=== PATIENT | female | born 1945 | race Caucasian/White ===

== ENCOUNTER → 2017-11-08 12:47 | Outpatient (CLI) | payer OTHER, SELFPAY ==
--- NOTE | 2017-11-08 | DI.RAD.S_ITS ---
PROCEDURE: XR CHEST 2V INDICATIONS: SHORT OF BREATH TECHNIQUE: 2 views of the chest were acquired. COMPARISON: None. FINDINGS: Surgical changes and devices: None. Lungs and pleura: No pleural effusions or pneumothorax. Diffuse bilateral interstitial opacities are present. No focal lung consolidation Mediastinum: Mediastinal contours are normal. Heart size is mildly enlarged. Bones and chest wall: No suspicious bony abnormalities. Soft tissues appear unremarkable. IMPRESSION: Mildly enlarged cardiac silhouette and bilateral interstitial opacities suggesting mild pulmonary edema. Differential would also include atypical pneumonia. Correlate clinically. Dictated by: Gerardo Frey [facility] Interpreted: Tao Lacey MD on 11/08/2017 at 14:22 Approved by: Tao Lacey M.D. on 11/08/2017 at 19:10
== END ==
PROVIDERS: PCP Internal Medicine; Visit Provider Internal Medicine
DX: R06.02 Shortness of breath (principal)
CPT/HCPCS: 71046

== ENCOUNTER → 2018-02-23 14:33 | Outpatient (CLI) | payer OTHER, SELFPAY ==
--- NOTE | 2018-02-23 | DI.ECHO.S_ITS ---
[facility]---------+ [facility] +---------+ : : [address] : : : : [id number] : : : : Phone: [phone]+ Echocardiogram Report + + :Name: JASON FLYNN Study Date: 02/23/2018 Height: 60 in : :[facility] Weight: 262 lb : : Gender: Female BSA: 2.1 m2 : :: 1945 Age: 72 yrs BP: 166/62 mmHg: :Reason For Study: Dyspnea : :Ordering Physician: Tricia : :[place]loan Performed By: Rosalinda Nath : + + Interpretation Summary The left ventricle is normal in size. The ejection fraction is estimated to be 65-70%. There are no focal wall motion abnormalities. Diastolic parameters suggest a relaxation abnormality of the left ventricle, consistent with probable normal filling pressures. The right ventricle is borderline dilated. The right ventricular systolic function is normal. The right ventricular systolic pressure is estimated to be at least 33 mmHg based on an estimated right atrial pressure of 3 mm Hg. The left atrium is mildly dilated. Borderline right atrial enlargement. There is no significant valvular heart disease. The aortic root is normal size. Procedure: A two-dimensional transthoracic echocardiogram with color flow and Doppler was performed. The study quality was technically adequate. There is no prior echocardiogram noted for this patient. The patient was in normal sinus rhythm during the exam. Left Ventricle: The left ventricle is normal in size. There is mild concentric left ventricular hypertrophy. The ejection fraction is estimated to be 65-70%. There are no focal wall motion abnormalities. Diastolic parameters suggest a relaxation abnormality of the left ventricle, consistent with probable normal filling pressures. Right Ventricle: The right ventricle is borderline dilated. The right ventricular systolic function is normal. Atria: The left atrium is mildly dilated. Borderline right atrial enlargement. There is no Doppler evidence for an interatrial shunt. Mitral Valve: There is mild mitral annular calcification. There is no mitral regurgitation noted. Aortic Valve: The aortic valve is not well visualized. The aortic valve is grossly normal. No aortic regurgitation is present. Tricuspid Valve: The tricuspid valve is not well visualized, but is grossly normal. There is a trace or physiologic amount of tricuspid regurgitation. The right ventricular systolic pressure is estimated to be at least 33 mmHg based on an estimated right atrial pressure of 3 mm Hg. Pulmonic Valve: The pulmonic valve is not well visualized. There is no significant valvular heart disease. Great Vessels: The aortic root is normal size. The ascending aorta is normal in size. The aortic arch is normal in size. The IVC is of normal diameter and collapses greater than 50% with a sniff. This suggests a low right atrial pressure of 3 mm Hg. Pericardium/ Pleura There is no pericardial effusion. There is an anterior echo-free space consistent with a fat pad. MMode/2D Measurements & Calculations LVIDd: 5.4 cm LVOT diam: 1.9 cm LVIDs: 3.3 cm Ao root diam: 2.8 cm FS: 39.9 % asc Aorta Diam: 3.0 cm IVSd: 1.1 cm Ao Arch Diam (Prox Trans): 2.4 cm LVPWd: 1.1 cm LV aguilera. diameter/BSA (cm/m^2): 2.6 LV sys. diameter/BSA (cm/m^2): 1.6 LA A2 area: 24.0 cm2 RA long axis: 5.2 cm LA A4 area: 20.8 cm2 RA area: 20.0 cm2 LA length (vol): 5.4 cm RA vol: 65.1 ml LA vol: 78.7 ml RA : 31.1 ml/m2 LA vol index: 37.6 ml/m2 IVC diam: 2.0 cm RVD1 (basal): 4.3 cm RVD2 (mid): 3.3 cm TAPSE: 3.2 cm Doppler Measurements & Calculations Ao V2 max: 247.2 cm/sec LVOT Max Nael: 147.4 cm/sec Ao V2 mean: 166.9 cm/sec LV V1 max P.7 mmHg Ao max P.4 mmHg LV V1 VTI: 32.7 cm Ao mean P.3 mmHg NARCISO(I,D): 1.9 cm2 Ao V2 VTI: 51.8 cm NARCISO(V,D): 1.8 cm2 sev ratio: 0.63 NARCISO indexed to BSA (cm^2/m^2): 0.89 MV E max nael: 117.2 cm/sec TR max nael: 275.6 cm/sec MV A max nael: 135.5 cm/sec TR max P.4 mmHg MV E/A: 0.86 PA V2 max: 120.8 cm/sec Med Peak E' Nael: 6.9 cm/sec PA V2 mean: 79.6 cm/sec E/E' med: 16.9 PA mean P.9 mmHg Lat Peak E' Nael: 8.3 cm/sec PA Accel Time: 0.06 sec E/E' lat: 14.1 E/e' average: 15.5 MV dec time: 0.27 sec MV P1/2t: 79.7 msec MVA(VTI): 2.9 cm2 MV V2 mean: 72.7 cm/sec MV P1/2t max nael: 117.1 cm/sec MV mean P.5 mmHg MVA(P1/2t): 2.8 cm2 MV V2 VTI: 33.0 cm SV(LVOT): 96.4 ml Reading Physician:PM
== END ==
PROVIDERS: Family Provider Internal Medicine; PCP Internal Medicine; Visit Provider Internal Medicine
DX: R06.00 Dyspnea, unspecified (principal)
CPT/HCPCS: 93306

== ENCOUNTER → 2018-03-15 11:33 | Outpatient (CLI) | payer OTHER, SELFPAY ==
--- NOTE | 2018-03-15 11:36 | DI.CT.S_ITS ---
PROCEDURE: CT CHEST ABD PEL W CON INDICATIONS: surveillance scan TECHNIQUE: After the administration of oral and intravenous contrast, 5 mm thick sections acquired from the lung apices to the symphysis. 5 mm coronal and sagittal reformats were performed, with additional 7 mm coronal MIP reformats through the lungs. For radiation dose reduction, the following was used: automated exposure control, adjustment of mA and/or kV according to patient size. COMPARISON: Outside Facility, RG, CT ABDOMEN WITH CONTRAST, 07/01/2016, 9:43. FINDINGS: Image quality: Excellent. CHEST: Lungs and pleura: No acute consolidation. Scattered subsegmental atelectasis and/or scarring. No pleural effusions or pneumothorax. Central and peripheral airways appear patent and normal in caliber. Mediastinum: Heart size is normal. No pericardial effusion. No mediastinal or hilar adenopathy by size criteria. Thoracic aorta and central pulmonary arteries are normal in size. Esophagus is normal in caliber. No hiatal hernia. Chest wall: No axillary or supraclavicular adenopathy by size criteria. Thyroid gland negative. ABDOMEN: Solid organs: Liver is normal in size and enhancement. Gallbladder surgically absent. Biliary system is non dilated. Pancreas enhances normally. Spleen is normal in size and enhancement. No adrenal nodules. Left renal cortical scarring and postsurgical changes. No discrete mass. Right kidney demonstrates a simple appearing cyst in the inferior pole below as unremarkable. No hydronephrosis. Ureters appear nondilated. Peritoneum and bowel: At the GE junction, there is possible esophageal wall thickening which could be further evaluated with endoscopy. Bowel loops demonstrate normal wall thickness and caliber. No free fluid or air. The appendix is within normal limits Rectum is grossly unremarkable Colonic diverticulosis is seen without evidence of acute complication. Nodes and vessels: No retroperitoneal or mesenteric adenopathy by size criteria. Aorta and inferior vena cava are normal in size. Miscellaneous: Large fat-containing paraumbilical hernia, with grossly unchanged appearance since 2017. PELVIS: Genitourinary: Bladder wall thickness is normal. Miscellaneous: No inguinal hernias or adenopathy. Bones: No suspicious bony lesions. Multilevel lumbar disc degeneration and facet arthropathy. Lower thoracic degenerative disc disease. No vertebral body compression fractures. IMPRESSION: No evidence of active metastatic disease. Overall, stable examination since 07/01/16. Postsurgical sequela from prior left partial nephrectomy, unchanged. Large fat-containing periumbilical hernia as before. Distal esophageal wall thickening, which could be further evaluated with upper endoscopy to exclude neoplasm. Differential includes infectious or inflammatory esophagitis. Dictated by: Arnav Bejarano M.D. on 03/16/2018 at 12:15 Approved by: Arnav Bejarano M.D. on 03/16/2018 at 12:23
[2018-03-15 12:16] LABS: Add Manual Diff / Slide Review NO; Basophils Percent Auto 0.8 % (0-2); Eosinophils Percent Auto 0.8 % (2-4); Hematocrit 42.2 % (36-46); Hemoglobin 14.3 g/dL (12.0-16.0); Lymphocytes Percent Auto 24.3 % (25-40); Mean Corpuscular HGB Conc 33.9 % (30-36); Mean Corpuscular Hemoglobin 30.3 PG (26-34); Mean Corpuscular Volume 89.3 fL (80-100); Monocytes Percent Auto 5.3 % (3-14); Neutrophils Absolute Auto 6300 /uL (1500-7000); Neutrophils Percent Auto 68.8 % (50-75); Platelet Count 302 X10^3/uL (150-400); Red Blood Cell Count 4.72 X10^6/uL (4.0-5.2); White Blood Cell Count 9.2 X10^3/uL (4.5-11.0)
[2018-03-15 12:30] LABS: Alanine Aminotransferase 32 IU/L (9-52); Albumin 4.4 g/dL (3.5-5.0); Albumin Globulin Ratio 1.6 (1.0-2.8); Alkaline Phosphatase 110 U/L (38-126); Aspartate Aminotransferase 23 IU/L (14-36); BUN Creatinine Ratio 21.3 (6-22); Bilirubin Total 0.8 mg/dL (0.2-1.3); Blood Urea Nitrogen 17 mg/dL (7-17); Calcium 9.7 mg/dL (8.4-10.2); Carbon Dioxide 27 mmol/L (22-32); Chloride 102 mmol/L (98-107); Estimated Glomerular Filt Rate > 60.0 mL/min (>60); Globulin 2.8 g/dL (1.7-4.1); Glucose 161 mg/dL (80-110); HEMOLYSIS < 15 (0-50); Potassium 4.2 mmol/L (3.4-5.1); Sodium 139 mmol/L (137-145); Total Protein 7.2 g/dL (6.3-8.2)
[2018-03-15 12:31] LABS: Lactate Dehydrogenase 417 U/L (313-618)
== END ==
PROVIDERS: Family Provider Internal Medicine; PCP Internal Medicine; Visit Provider Internal Medicine Hematology & Oncology
DX: C64.2 Malignant neoplasm of left kidney, except renal pelvis (principal); K42.9 Umbilical hernia without obstruction or gangrene; Z90.5 Acquired absence of kidney
CPT/HCPCS: 36415; 71260; 74177; 80053; 83615; 85025; Q9967

== ENCOUNTER → 2018-05-23 08:44 | Outpatient (CLI) | payer MEDICARE, SELFPAY ==
[2018-05-23 10:22] LABS: Hemoglobin A1C% w Est Avg Glu 7.6 % (4.0-6.0)
[2018-05-23 10:49] LABS: Alanine Aminotransferase 30 IU/L (9-52); Aspartate Aminotransferase 21 IU/L (14-36); BUN Creatinine Ratio 21.3 (6-22); Blood Urea Nitrogen 17 mg/dL (7-17); Calcium 9.2 mg/dL (8.4-10.2); Carbon Dioxide 28 mmol/L (22-32); Chloride 99 mmol/L (98-107); Cholesterol 148 mg/dL (140-199); Estimated Glomerular Filt Rate > 60.0 mL/min (>60); Glucose 140 mg/dL (80-110); HDL Cholesterol 53 mg/dL (40-60); HEMOLYSIS < 15 (0-50); LDL Cholesterol Calculated 72 mg/dL (<100); Potassium 3.9 mmol/L (3.4-5.1); Sodium 138 mmol/L (137-145); Triglycerides 113 mg/dL (35-150)
== END ==
PROVIDERS: Family Provider Internal Medicine; PCP Internal Medicine; Visit Provider Internal Medicine
DX: I10 Essential (primary) hypertension (principal); E78.5 Hyperlipidemia, unspecified; E11.9 Type 2 diabetes mellitus without complications
CPT/HCPCS: 36415; 80048; 80061; 83036; 84450; 84460

== ENCOUNTER → 2018-09-11 09:19 | Outpatient (CLI) | payer MEDICARE, SELFPAY ==
[2018-09-11 10:06] LABS: Add Manual Diff / Slide Review NO; Basophils Absolute Auto 100 /uL (0-100); Basophils Percent Auto 0.6 % (0-2); Eosinophils Absolute Auto 200 /uL (0-450); Eosinophils Percent Auto 2.3 % (2-4); Hematocrit 42.3 % (36-46); Lymphocytes Absolute Auto 2800 /uL (1100-4500); Lymphocytes Percent Auto 33.3 % (25-40); Mean Corpuscular HGB Conc 33.1 % (30-36); Mean Corpuscular Hemoglobin 29.7 PG (26-34); Mean Corpuscular Volume 89.7 fL (80-100); Monocytes Absolute Auto 500 /uL (0-900); Monocytes Percent Auto 6.4 % (3-14); Neutrophils Absolute Auto 4800 /uL (1500-7000); Neutrophils Percent Auto 57.4 % (50-75); Platelet Count 276 X10^3/uL (150-400); Red Blood Cell Count 4.71 X10^6/uL (4.0-5.2); White Blood Cell Count 8.3 X10^3/uL (4.5-11.0)
[2018-09-11 10:20] LABS: Alanine Aminotransferase 20 IU/L (9-52); Albumin 4.2 g/dL (3.5-5.0); Albumin Globulin Ratio 1.6 (1.0-2.8); Alkaline Phosphatase 104 U/L (38-126); Aspartate Aminotransferase 20 IU/L (14-36); BUN Creatinine Ratio 18.8 (6-22); Bilirubin Total 0.8 mg/dL (0.2-1.3); Blood Urea Nitrogen 15 mg/dL (7-17); Calcium 9.5 mg/dL (8.4-10.2); Carbon Dioxide 26 mmol/L (22-32); Chloride 104 mmol/L (98-107); Estimated Glomerular Filt Rate > 60.0 mL/min (>60); Globulin 2.7 g/dL (1.7-4.1); Glucose 162 mg/dL (80-110); HEMOLYSIS < 15 (0-50); Lactate Dehydrogenase 358 U/L (313-618); Potassium 3.7 mmol/L (3.4-5.1); Sodium 140 mmol/L (137-145); Total Protein 6.9 g/dL (6.3-8.2)
[2018-09-11 10:32] LABS: Hemoglobin A1C% w Est Avg Glu 7.7 % (4.0-6.0)
== END ==
PROVIDERS: PCP Internal Medicine; Referring Provider Internal Medicine Hematology & Oncology; Visit Provider Internal Medicine
DX: E11.9 Type 2 diabetes mellitus without complications (principal); Z08 Encounter for follow-up examination after completed treatment for malignant neoplasm
CPT/HCPCS: 36415; 80053; 83036; 83615; 85025

== ENCOUNTER → 2018-11-16 12:27 | Outpatient (CLI) | payer MEDICARE, SELFPAY | PROVIDERS: PCP Internal Medicine; Visit Provider Surgery | DX: Z01.810 Encounter for preprocedural cardiovascular examination (principal); E66.01 Morbid (severe) obesity due to excess calories; I10 Essential (primary) hypertension; I49.9 Cardiac arrhythmia, unspecified | CPT/HCPCS: 93005 ==

== ENCOUNTER → 2019-01-19 10:06 | Outpatient (CLI) | payer MEDICARE, SELFPAY ==
--- NOTE | 2019-01-19 | DI.MG.S_ITS ---
BILATERAL DIGITAL SCREENING MAMMOGRAM 3D/2D WITH CAD: 01/19/2019 CLINICAL: Routine screening. Family history of breast cancer. Comparison is made to exams dated: 04/07/2011 mammogram, 06/25/2012 mammogram, and 12/07/2015 mammogram - [facility]. There are scattered fibroglandular elements in both breasts. Current study was also evaluated with a Computer Aided Detection (CAD) system. No significant masses, calcifications, or other findings are seen in either breast. There has been no significant interval change. IMPRESSION: NEGATIVE There is no mammographic evidence of malignancy. A 1 year screening mammogram is recommended. This exam was interpreted at Station ID: [id number]. NOTE: For mammograms, a report in lay terms will be sent to the patient. Approximately 15% of breast malignancies will not be visualized mammographically. In the management of a palpable breast mass, a negative mammogram must not discourage biopsy of a clinically suspicious lesion. Electronically Signed By: Srinivasa escobar/liz:01/20/2019 12:48:39 letter sent: Normal Exam ACR BI-RADS Category 1: Negative [id number]
== END ==
PROVIDERS: PCP Internal Medicine; Visit Provider Internal Medicine
DX: Z12.31 Encounter for screening mammogram for malignant neoplasm of breast (principal); Z80.3 Family history of malignant neoplasm of breast
CPT/HCPCS: 77063; 77067

== ENCOUNTER → 2019-05-10 10:10 | Outpatient (CLI) | payer MEDICARE, SELFPAY ==
[2019-05-10 11:02] LABS: Hemoglobin A1C% w Est Avg Glu 7.1 % (4.0-6.0)
[2019-05-10 11:33] LABS: Alanine Aminotransferase 25 IU/L (<35); Albumin 4.1 g/dL (3.5-5.0); Albumin Globulin Ratio 1.5 (1.0-2.8); Alkaline Phosphatase 101 U/L (38-126); Aspartate Aminotransferase 28 IU/L (14-36); BUN Creatinine Ratio 16.3 (6-22); Bilirubin Total 0.8 mg/dL (0.2-1.3); Blood Urea Nitrogen 13 mg/dL (7-17); Calcium 9.5 mg/dL (8.4-10.2); Carbon Dioxide 29 mmol/L (22-32); Chloride 103 mmol/L (98-107); Cholesterol 176 mg/dL (140-199); Estimated Glomerular Filt Rate > 60.0 mL/min (>60); Globulin 2.8 g/dL (1.7-4.1); Glucose 151 mg/dL (80-110); HDL Cholesterol 62 mg/dL (40-60); HEMOLYSIS 29 (0-50); LDL Cholesterol Calculated 87 mg/dL (<100); Potassium 4.5 mmol/L (3.4-5.1); Sodium 139 mmol/L (137-145); Total Protein 6.9 g/dL (6.3-8.2); Triglycerides 135 mg/dL (35-150)
== END ==
PROVIDERS: PCP Internal Medicine; Referring Provider Internal Medicine; Visit Provider Internal Medicine
DX: I10 Essential (primary) hypertension (principal); E78.5 Hyperlipidemia, unspecified; E11.9 Type 2 diabetes mellitus without complications
CPT/HCPCS: 36415; 80053; 80061; 83036

== ENCOUNTER 2019-07-28 11:40 | Emergency (ER) | payer MEDICARE, SELFPAY ==
--- NOTE | 2019-07-28 11:48 | DI.RAD.S_ITS ---
PROCEDURE: XR HAND LT MIN 3V INDICATIONS: little finger distal amputation TECHNIQUE: 3 views of the hand(s) acquired. COMPARISON: None. FINDINGS: Bones: No acute fractures or dislocations. Carpal bones are normally aligned. No suspicious bony lesions. The bone mineralization is decreased. Moderate to severe degenerative changes of the joints of the left hand are most pronounced involving the 2nd and 3rd digits. There also are prominent degenerative changes involving the basal joint of the thumb. Ossific/calcific density adjacent to the trapezium probably is related to previous injury or degenerative changes. Soft tissues: No suspicious soft tissue calcifications. Mild truncation involving the distal aspect of the 5th digit is identified. No radiopaque foreign bodies are evident. IMPRESSION: 1. Soft tissue injury of the left 5th digit. No foreign bodies or fractures. 2. Moderate to severe degenerative changes of the left hand. Dictated by: Raghav Garner M.D. on 07/28/2019 at 11:12 Approved by: Raghav Garner M.D. on 07/28/2019 at 11:14
[2019-07-28] MEDS: TET,DIPH,PERTUSS(ACELL),VAC/PF 0.5 ML SYRINGE IM (11:52)
[2019-07-28 12:00] VITALS: BP 192/80; PULSE 95; RESP 21; TEMP 36.7; O2SAT 98
--- NOTE | 2019-07-28 12:02 | ED_ITS ---
HPI - Wound/Laceration General Chief Complaint: Wound/Laceration Stated Complaint: Lt pinky cut off tip Time Seen by Provider: 07/28/19 11:48 Source: patient Mode of arrival: Ambulatory Limitations: no limitations History of Present Illness HPI narrative: 74-year-old female here for evaluation of an injury to the tip of her left little finger. Patient states she was using a pair of scissors to cut open a package of rosenbaum when she cut her finger. She does not know when her last tetanus shot was. She covered with a bandage in came into the emergency department because of the bleeding. Related Data Home Medications Medication Instructions Recorded Confirmed hydrochlorothiazide 25 mg DAILY #0 11/23/16 01/18/19 multivitamin [Multiple Vitamins] 1 tab DAILY #0 11/23/16 01/18/19 atorvastatin 10 mg PO DAILY 03/02/18 01/18/19 calcium carbonate-vitamin D3 1 tab PO BID 03/02/18 01/18/19 [Calcium 500 + D] fluticasone propionate [Flonase 03/02/18 01/18/19 Allergy Relief] levothyroxine 100 mcg DAILY 03/02/18 01/18/19 losartan 100 mg PO DAILY 03/02/18 01/18/19 magnesium 250 mg PO DAILY 03/02/18 01/18/19 fluticasone propion-salmeterol 1 puff INHALATION BID 11/15/18 01/18/19 [Advair Diskus] acetaminophen PO 12/13/18 01/18/19 esomeprazole magnesium 20 mg 20 mg PO BID tab 12/13/18 01/18/19 tablet,delayed release glimepiride 1 mg tablet 2 mg PO DAILY #0 tab 12/13/18 01/18/19 insulin glargine 100 unit/mL 20 - 30 unit SUBCUT DAILY #0 ml 12/13/18 01/18/19 subcutaneous solution trazodone 50 mg tablet 150 mg PO BEDTIME tab 12/13/18 01/18/19 Previous Rx's Medication Instructions Recorded zolpidem 10 mg tablet 10 mg PO ONCE #1 tab 01/18/19 Allergies Allergy/AdvReac Type Severity Reaction Status Date / Time ampicillin [AMPICILLIN] Allergy Unknown RASH Unverified 01/18/19 10:26 metformin [METFORMIN] Allergy Unknown RASH Unverified 01/18/19 10:26 Review of Systems Constitutional Constitutional: Denies fever(s) Musculoskeletal Musculoskeletal: Denies myalgias, Denies arthralgias and Denies tingling Integumentary/Breasts Comments: Cut to the tip of the left little finger Neurologic Neurologic: Denies tingling and Denies paresthesias Hematologic/Lymphatic Hematologic/Lymphatic: Denies easy bleeding and Denies easy bruising Patient History Medical History Anxiety (Chronic Unknown) Asthma (Acute) Carcinoma of left kidney (Acute) Diabetes mellitus (Acute) Diabetic retinopathy (Acute) GERD (gastroesophageal reflux disease) (Acute) Hyperlipidemia (Acute) Hypertension (Acute) Insomnia (Chronic ~1956) Morbid obesity with body mass index (BMI) of 50.0 to 59.9 in adult (Chronic) Obstructive sleep apnea (Chronic ~01/2019) Osteopenia (Acute) 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, including shoulder (Acute) Surgical History History of cholecystectomy (Acute) Hx of partial nephrectomy (Acute) S/P EL-BSO (total abdominal hysterectomy and bilateral salpingo-oophorectomy) (Acute) Social History Smoking Status: Former smoker alcohol intake: never substance use type: does not use Smoking Status: Former smoker Exam Initial Vital Signs Initial Vital Signs: Vital Signs Temperature 98.1 F 07/28/19 12:00 Pulse Rate 95 H 07/28/19 12:00 Respiratory Rate 21 07/28/19 12:00 Blood Pressure 192/80 H 07/28/19 12:00 Pulse Oximetry 98 07/28/19 12:00 Const General: cooperative and comfortable Cardio Pulses: radial pulses present on the left Skin Other: Patient has the tip of the left little finger on the ulnar aspect that has been avulsed. It does involve the very tip of the fingernail. The rest of the nail beds unremarkable. There was some oozing from the area but no active bleeding no bone exposed. Extrem Other: Patient able to flex and extend at all joints the left little finger Course Orders Ordered: ED Orders 07/28/19 11:48 XR hand LT min 3V Stat Discontinued Medications Diphtheria/Tetanus/Acell Pertussis (Adacel) 0.5 ml IM .ONCE ONE Stop: 07/28/19 11:49 Last Admin: 07/28/19 11:52 Dose: 0.5 ml Documented by: FLORINDA Vital Signs Vital signs: Vital Signs - 8 hr 07/28/19 12:00 Temperature 98.1 F Pulse Rate 95 H Respiratory Rate 21 Blood Pressure 192/80 H Pulse Oximetry 98 MDM - Wound/Laceration Imaging Data Extremity x-ray #1: Radiologist's Impression: [address] [address] XRay Report Signed Patient: Aiden MujicaMR#: [id number] : 11/23/1995Acct:[id number] Age/Sex: 23 / MDate of Service: 07/28/19 Loc: ED Accession Number: [id number] Procedure: XR hand LT min 3V Ordering Provider: Francisco J Diaz D.O. PROCEDURE: XR HAND LT MIN 3V INDICATIONS: crush injury TECHNIQUE: 3 views of the hand(s) acquired. COMPARISON: None. FINDINGS: Bones: No fractures or dislocations. Carpal bones are normally aligned. No suspicious bony lesions. Soft tissues: No suspicious soft tissue calcifications. Soft tissue swelling of the hand is present. No radiopaque foreign bodies are evident. IMPRESSION: No acute fractures of the left hand. Dictated by: Raghav Garner M.D. on 07/28/2019 at 11:04 Approved by: Raghav Garner M.D. on 07/28/2019 at 11:04 [facility] Narrative Medical decision making narrative: The injury to left little finger is more of a avulsion/abrasion rather than a true laceration. Unfortunately we are unable to suture any skin back together. There is very minimal finger nail involvement. There is no bone exposure. The x-ray is unremarkable. It was covered with Surgicel and then Telfa and then tube gauze. I suspect this will heal without problems by secondary intention. We did discuss care instructions and return precautions. Patient expressed understanding and agreement. Discharge Plan Departure Patient Disposition: Home Clinical Impression: Finger laceration Qualifiers: Encounter type: initial encounter Finger: little finger Damage to nail status: with damage Foreign body presence: without foreign body Laterality: left Qualified Code(s): S61.317A - Laceration without foreign body of left little finger with damage to nail, initial encounter Instructions: DI for Minor Laceration Activity Restrictions/Additional Instructions: After 24 hours the bandage that was placed here in the emergency department can be removed. You can wash your and like normal after that. You can use topical antibiotic ointment and replaced the bandage like we discussed. Return to the emergency department for any new or worsening symptoms Prescriptions: No Action hydrochlorothiazide 12.5 MG capsule 25 mg DAILY Qty: 0 RF: 0 multivitamin [Multiple Vitamins] 1 EACH tablet 1 tab DAILY Qty: 0 RF: 0 glimepiride [Amaryl] 1 mg tablet 2 mg PO DAILY Qty: 0 RF: 0 Lantus U-100 Insulin 100 unit/mL solution 20 - 30 unit subcut DAILY Qty: 0 RF: 0 atorvastatin 10 mg Tablet 10 mg PO DAILY RF: 0 levothyroxine 100 mcg Tablet 100 mcg DAILY RF: 0 magnesium 250 mg Tablet 250 mg PO DAILY RF: 0 losartan 100 mg Tablet 100 mg PO DAILY RF: 0 fluticasone propionate [Flonase Allergy Relief] 50 mcg/actuation [place],Suspension RF: 0 calcium carbonate-vitamin D3 [Calcium 500 + D] 500 mg(1,250mg) -200 unit Tablet 1 tab PO BID RF: 0 fluticasone propion-salmeterol [Advair Diskus] 100-50 mcg/dose Blister With Device 1 puff INHALATION BID RF: 0 esomeprazole magnesium 20 mg tablet,delayed release (DR/EC) 20 mg PO BID RF: 0 trazodone 50 mg tablet 150 mg PO BEDTIME RF: 0 zolpidem 10 mg tablet 10 mg PO ONCE Qty: 1 RF: 0 acetaminophen PO RF: 0 Referrals: Tricia Lisa MD [Primary Care Provider] -
== END 2019-07-28 12:43 | disposition home or self-care (01) ==
PROVIDERS: Emergency Provider Emergency Medicine; PCP Internal Medicine
DX: S61.317A Laceration without foreign body of left little finger with damage to nail, initial encounter (principal); W26.8XXA Contact with other sharp object(s), not elsewhere classified, initial encounter; Z23 Encounter for immunization
CPT/HCPCS: 73130; 90471; 99283; 90715

== ENCOUNTER → 2019-12-10 14:40 | Outpatient (CLI) | payer MEDICARE, SELFPAY ==
--- NOTE | 2019-12-10 14:41 | DI.CT.S_ITS ---
PROCEDURE: CT CHEST ABD PEL WO CON INDICATIONS: kidney cancer TECHNIQUE: After the administration of oral contrast, 5 mm thick sections acquired from the lung apices to the symphysis pubis. 5 mm thick coronal and sagittal reformats acquired, with additional 7 mm coronal MIP reformats through the lungs. For radiation dose reduction, the following was used: automated exposure control, adjustment of mA and/or kV according to patient size. COMPARISON: Outside Facility, RG, CT ABDOMEN WITH CONTRAST, 07/01/2016, 9:43. [facility], CT, CT CHEST ABD PEL W CON, 03/15/2018, 12:38. FINDINGS: Image quality: Excellent. CHEST: Lungs and pleura: No acute pulmonary opacities. Mild platelike atelectasis is present at the bilateral lung bases. No pleural effusions or pneumothorax. Central and peripheral airways are patent are normal in caliber. Mediastinum: Heart size is mildly enlarged. Scattered atheromatous calcifications are present within the coronary arteries. No pericardial effusion. No mediastinal adenopathy by CT size criteria. Thoracic aorta and central pulmonary arteries are normal in size. Scattered atheromatous calcifications are present within the aortic arch. Esophagus is normal in caliber. No hiatal hernia. Chest wall: No axillary or supraclavicular adenopathy by size criteria. Thyroid gland is unremarkable . ABDOMEN: Solid organs: Liver is normal in size. Gallbladder is surgically absent . Pancreas is normal in contours. Spleen is normal in size. No adrenal nodules. Both kidneys are normal in size, without hydronephrosis or nephrolithiasis. Postoperative changes are present at the lower pole of the left kidney. Peritoneum and bowel: Small and large bowel loops are normal in caliber and wall thickness. The appendix is thin walled and gas filled. No free fluid or air. Nodes and vessels: No retroperitoneal or mesenteric adenopathy by size criteria. Aorta and inferior vena cava are normal in size. There are scattered atheromatous calcifications throughout the aorta and iliac arteries bilaterally. Miscellaneous: There is a large periumbilical fat containing ventral hernia. PELVIS: Genitourinary: Bladder wall thickness is normal. Miscellaneous: No inguinal hernias or adenopathy. Bones: No suspicious bony lesions. No vertebral body compression fractures. IMPRESSION: 1. No findings to suggest tumor recurrence or metastasis. 2. Aortic and coronary artery atheromatous calcifications. Dictated by: Joan Singh M.D. on 12/10/2019 at 15:51 Approved by: Joan Singh M.D. on 12/10/2019 at 16:03
== END ==
PROVIDERS: PCP Internal Medicine; Referring Provider Internal Medicine Hematology & Oncology; Visit Provider Internal Medicine Hematology & Oncology
DX: C64.2 Malignant neoplasm of left kidney, except renal pelvis (principal); K43.9 Ventral hernia without obstruction or gangrene; I25.10 Atherosclerotic heart disease of native coronary artery without angina pectoris; I70.0 Atherosclerosis of aorta; Z90.49 Acquired absence of other specified parts of digestive tract
CPT/HCPCS: 71250; 74176

== ENCOUNTER → 2020-04-07 10:10 | Outpatient (CLI) | payer OTHER, SELFPAY ==
[2020-04-07 11:13] LABS: Hemoglobin A1C% w Est Avg Glu 7.4 % (4.0-6.0)
[2020-04-07 11:44] LABS: Alanine Aminotransferase 20 IU/L (<35); Albumin 4.2 g/dL (3.5-5.0); Albumin Globulin Ratio 1.6 (1.0-2.8); Alkaline Phosphatase 88 U/L (38-126); Aspartate Aminotransferase 23 IU/L (14-36); BUN Creatinine Ratio 22.2 (6-22); Bilirubin Total 0.3 mg/dL (0.2-1.3); Blood Urea Nitrogen 24 mg/dL (7-17); Calcium 9.2 mg/dL (8.4-10.2); Carbon Dioxide 29 mmol/L (22-32); Chloride 104 mmol/L (98-107); Cholesterol 143 mg/dL (140-199); Estimated Glomerular Filt Rate 49.7 mL/min (>60); Globulin 2.6 g/dL (1.7-4.1); Glucose 112 mg/dL (80-110); HDL Cholesterol 56 mg/dL (40-60); HEMOLYSIS < 15 (0-50); LDL Cholesterol Calculated 71 mg/dL (<100); Potassium 3.6 mmol/L (3.4-5.1); Sodium 138 mmol/L (137-145); Total Protein 6.8 g/dL (6.3-8.2); Triglycerides 81 mg/dL (35-150)
[2020-04-07 12:15] LABS: TSH w/ Reflex to FT4 1.14 uIU/mL (0.47-4.68)
== END ==
PROVIDERS: PCP Internal Medicine; Referring Provider Internal Medicine; Visit Provider Internal Medicine
DX: I10 Essential (primary) hypertension (principal); E78.5 Hyperlipidemia, unspecified; E11.9 Type 2 diabetes mellitus without complications
CPT/HCPCS: 36415; 80053; 80061; 83036; 84443

== ENCOUNTER → 2020-10-07 08:27 | Outpatient (CLI) | payer OTHER, SELFPAY ==
--- NOTE | 2020-10-07 | DI.MG.S_ITS ---
BILATERAL DIGITAL SCREENING MAMMOGRAM 3D/2D WITH CAD: 10/07/2020 CLINICAL: Routine screening. Comparison is made to exams dated: 01/19/2019 mammogram - [facility], 12/07/2015 mammogram, and 06/25/2012 mammogram - [facility]. There are scattered fibroglandular elements in both breasts. Current study was also evaluated with a Computer Aided Detection (CAD) system. No significant masses, calcifications, or other findings are seen in either breast. There has been no significant interval change. IMPRESSION: NEGATIVE There is no mammographic evidence of malignancy. A 1 year screening mammogram is recommended. This exam was interpreted at Station ID: [id number]. NOTE: For mammograms, a report in lay terms will be sent to the patient. Approximately 15% of breast malignancies will not be visualized mammographically. In the management of a palpable breast mass, a negative mammogram must not discourage biopsy of a clinically suspicious lesion. Electronically Signed By: Jake dodd/liz:10/07/2020 08:47:21 letter sent: Normal Exam ACR BI-RADS Category 1: Negative [id number]
== END ==
PROVIDERS: PCP Internal Medicine; Referring Provider Internal Medicine; Visit Provider Internal Medicine
DX: Z12.31 Encounter for screening mammogram for malignant neoplasm of breast (principal)
CPT/HCPCS: 77063; 77067

== ENCOUNTER → 2020-10-26 11:16 | Outpatient (CLI) | payer OTHER, SELFPAY ==
[2020-10-26 13:03] LABS: Hemoglobin A1C% w Est Avg Glu 6.4 % (4.0-6.0)
[2020-10-26 13:19] LABS: Alanine Aminotransferase 18 IU/L (<35); Albumin 4.1 g/dL (3.5-5.0); Albumin Globulin Ratio 1.6 (1.0-2.8); Alkaline Phosphatase 94 U/L (38-126); Aspartate Aminotransferase 27 IU/L (14-36); BUN Creatinine Ratio 21.1 (6-22); Bilirubin Total 0.7 mg/dL (0.2-1.3); Blood Urea Nitrogen 16 mg/dL (7-17); Calcium 9.9 mg/dL (8.4-10.2); Carbon Dioxide 25 mmol/L (22-32); Chloride 104 mmol/L (98-107); Cholesterol 157 mg/dL (140-199); Estimated Glomerular Filt Rate > 60.0 mL/min (>60); Globulin 2.6 g/dL (1.7-4.1); Glucose 133 mg/dL (80-110); HDL Cholesterol 55 mg/dL (40-60); HEMOLYSIS < 15 (0-50); LDL Cholesterol Calculated 83 mg/dL (<100); Potassium 3.8 mmol/L (3.4-5.1); Sodium 137 mmol/L (137-145); Total Protein 6.7 g/dL (6.3-8.2); Triglycerides 96 mg/dL (35-150)
[2020-10-26 13:48] LABS: TSH w/ Reflex to FT4 1.03 uIU/mL (0.47-4.68)
[2020-10-29 14:02] LABS: Uric Acid 6.7 mg/dL (2.5-6.2)
[2020-10-29 17:49] LABS: Hep C Virus Ab w/Reflex Quant NEGATIVE s/c (NEGATIVE)
== END ==
PROVIDERS: PCP Internal Medicine; Referring Provider Internal Medicine; Visit Provider Internal Medicine
DX: E11.9 Type 2 diabetes mellitus without complications (principal); I10 Essential (primary) hypertension; E78.5 Hyperlipidemia, unspecified; E03.9 Hypothyroidism, unspecified
CPT/HCPCS: 36415; 80053; 80061; 83036; 84443; 84550; 86803

== ENCOUNTER → 2022-01-10 16:39 | Outpatient (CLI) | payer MEDICARE, SELFPAY ==
--- NOTE | 2022-01-10 16:41 | DI.US.S_ITS ---
PROCEDURE: US ABD AORTA ANEURYSM SCREEN INDICATIONS: SCREENING TECHNIQUE: Real time scanning was performed of the aorta and iliac arteries, with image documentation. COMPARISON: None. FINDINGS: Aorta: Proximal aortic diameter measures 2 cm. Mid-aorta measures 1.7 cm. Distal aortic diameter is 1.2 cm. Iliac arteries: Right common iliac artery measures 1.4 cm. Left common iliac artery measures 1.2 cm. IMPRESSION: Negative for aneurysm. Dictated by: Devin Merchant M.D. on 01/10/2022 at 16:38 Approved by: Devin Merchant M.D. on 01/10/2022 at 16:38
== END ==
PROVIDERS: PCP Internal Medicine; Referring Provider Internal Medicine; Visit Provider Internal Medicine
DX: Z13.6 Encounter for screening for cardiovascular disorders (principal)
CPT/HCPCS: 76706

== ENCOUNTER → 2022-02-07 11:24 | Outpatient (CLI) | payer OTHER, SELFPAY ==
--- NOTE | 2022-02-07 12:35 | DI.MRI.S_ITS ---
PROCEDURE: MR LUMBAR SPINE WO CON INDICATIONS: lumbar spondylosis TECHNIQUE: Noncontrast sagittal T1 spin echo and T2 fast echo, sagittal STIR, and T2 fast spin echo through the lumbar spine. In cases with scoliosis, additional coronal T2 fast spin echo may be performed. COMPARISON: [facility] [place], CR, XR LUMBAR SPINE WITH OBLIQUES PLUS FLEXION EXTENSION, 01/27/2022, 10:30. FINDINGS: Image quality: Excellent. Alignment and Curvature: Mild thoracolumbar S shaped scoliotic curvature. Degenerative anterolisthesis of L4 on L5 measures 8 mm. Bone Marrow: Marrow is of normal overall signal. No acute vertebral body compression fractures. Spinal Cord: Conus medullaris terminates at the L1-L2 level. Visualized cord demonstrates normal signal and size. Paraspinous Soft Tissues: No paravertebral masses. T12-L1: No canal stenosis or foraminal stenosis. L1-L2: Disc bulge. Facet hypertrophy. Shallow left paracentral disc protrusion. No canal stenosis. Moderate right foraminal narrowing with flattening deformity on the exiting right L1 nerve root. L2-L3: Mild disc bulge. Mild facet hypertrophy. No canal stenosis or significant foraminal stenosis. L3-L4: Mild disc bulge. Facet hypertrophy. No canal stenosis or foraminal stenosis. L4-L5: Quite prominent bilateral facet hypertrophy. Anterolisthesis of L4 on L5. Posterior disc bulge. Moderate to severe canal stenosis. Datt-vk-mojjgfwv bilateral foraminal stenosis. L5-S1: Prominent bilateral facet hypertrophy. Posterior annulus tear. Very minimal disc bulge. No canal stenosis. Ajgh-jw-qyjqwghu left foraminal stenosis. IMPRESSION: 1. Multilevel facet arthropathy, prominent at L4-L5 and L5-S1. 2. There is moderate to severe canal stenosis at L4-L5. 3. Multilevel foraminal narrowing as described above. Dictated by: Brady Lange M.D. on 02/07/2022 at 14:03 Approved by: Brady Lange M.D. on 02/07/2022 at 14:11
== END ==
PROVIDERS: PCP Internal Medicine; Referring Provider Physical Medicine & Rehabilitation; Visit Provider Physical Medicine & Rehabilitation
DX: M47.816 Spondylosis without myelopathy or radiculopathy, lumbar region (principal); M47.817 Spondylosis without myelopathy or radiculopathy, lumbosacral region; M48.061 Spinal stenosis, lumbar region without neurogenic claudication
CPT/HCPCS: 72148

== ENCOUNTER 2022-04-28 17:49 | Emergency (ER) | payer MEDICARE, SELFPAY ==
[2022-04-28 17:56] VITALS: BP 181/79; PULSE 104; RESP 16; TEMP 37; O2SAT 98; BMI 46.5
--- NOTE | 2022-04-28 18:20 | ED_ITS ---
HPI - Abdominal Pain <Jaya Marlow PA-C - Last Filed: 04/28/22 18:27> General Chief Complaint: Abdominal Pain Stated Complaint: abd. pain/umbilical hernia Time Seen by Provider: 04/28/22 18:09 Source: patient Mode of arrival: Ambulatory History of Present Illness HPI narrative: This is a 76-year-old female presents to the emergency department due to abdominal pain secondary to a longstanding abdominal hernia. She states that she has had the abdominal hernia for the last 5 years and has seen a general surgeon about this but was advised that she would need to lose weight prior to surgery. She states that the abdominal hernia ?popped out? approximately 4 hours ago but that she was able to self reduce it while waiting to be seen. She denies any fevers, nausea, vomiting, or any other concerning signs or symptoms. Related Data Home Medications Medication Instructions Recorded Confirmed multivitamin (Multiple Vitamins 1 tab DAILY ##0 11/23/16 12/08/21 tablet) atorvastatin 10 mg tablet 10 mg PO DAILY 03/02/18 12/30/21 calcium carbonate 500 mg-vitamin 1 tab PO BID 03/02/18 12/30/21 D3 5 mcg (200 unit) tablet (Calcium 500 + D) fluticasone propionate 50 03/02/18 12/08/21 mcg/actuation nasal spray,suspension (Flonase Allergy Relief) levothyroxine 100 mcg tablet 100 mcg DAILY 03/02/18 12/30/21 losartan 100 mg tablet 100 mg PO DAILY 03/02/18 12/30/21 magnesium 250 mg tablet 250 mg PO DAILY 03/02/18 12/30/21 fluticasone 100 mcg-salmeterol 50 1 puff inhalation BID 11/15/18 12/30/21 mcg/dose blistr powdr for inhalation (Advair Diskus) acetaminophen [Tylenol Extra 325 mg PO PRN PRN Pain (Scale 12/13/18 12/30/21 Strength] Score 4-6) esomeprazole magnesium 20 mg 20 mg PO DAILY 12/13/18 12/30/21 tablet,delayed release glimepiride 1 mg tablet (Amaryl) 2 mg PO DAILY #0 tabs 12/13/18 12/30/21 trazodone 50 mg tablet 150 mg PO BEDTIME 12/13/18 12/08/21 Respironics DreamStation 2 12/08/21 12/08/21 gabapentin 100 mg capsule 100 mg PO DAILY 12/30/21 12/30/21 semaglutide 1 mg/dose (2 mg/1.5 1 mg SUBCUT QWEEK 12/30/21 12/30/21 mL) subcutaneous pen injector (Ozempic) Allergies Allergy/AdvReac Type Severity Reaction Status Date / Time ampicillin [AMPICILLIN] Allergy Unknown RASH Verified 04/28/22 17:56 metformin [METFORMIN] Allergy Unknown RASH Verified 04/28/22 17:56 Review of Systems <Jaya Marlow PA-C - Last Filed: 04/28/22 18:27> Review of Systems Narrative: GENERAL: Denies chills, fatigue, malaise, fever, sweats. HEENT: Denies sinus pain, ear pain, sore throat, difficulty swallowing, dizziness. RESPIRATORY: Denies dyspnea, cough, wheezing, hemoptysis, sputum. CARDIOVASCULAR: Denies chest pain, palpitations, orthopnea, edema, GASTROINTESTINAL: Had abdominal pain earlier, denies any abdominal pain now. Denies nausea, vomiting, abdominal pain, diarrhea, constipation, melena. : Denies dysuria, frequency, incontinence, hematuria, urinary retention. MUSCULOSKELETAL: denies weakness, joint pain, or bony pain SKIN: Denies rash, skin lesions, or other NEUROLOGIC: Denies weakness, headache, numbness, change in speech, confusion, seizures, incoordination. PSYCHIATRIC: No concerning psychosocial issues. 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 HEAD: Atraumatic. Normocephalic. EYES: Pupils equal round and reactive. Extraocular motions intact. No scleral icterus. No injection or drainage. ENT: Nose without bleeding, purulent drainage. Throat without erythema, tonsillar hypertrophy or exudate. Airway patent. NECK: Trachea midline. Non tender GASTROINTESTINAL: Abdomen soft, difficult to completely palpate secondary to adipose tissue but possible mass felt just right of the umbilicus. EXTREMITIES: No edema or joint tenderness. BACK: Nontender without deformity or crepitance. No flank tenderness. NEURO: AOx3. SKIN: No rash or erythema of visible areas Initial Vital Signs Initial Vital Signs: Vital Signs Temperature 98.6 F 04/28/22 17:56 Pulse Rate 104 H 04/28/22 17:56 Respiratory Rate 16 04/28/22 17:56 Blood Pressure 181/79 H 04/28/22 17:56 Pulse Oximetry 98 04/28/22 17:56 Oxygen Delivery Method 04/28/22 17:56 <Leidy Damon DO - Last Filed: 04/29/22 07:20> Initial Vital Signs Initial Vital Signs: Vital Signs Temperature 98.6 F 04/28/22 17:56 Pulse Rate 104 H 04/28/22 17:56 Respiratory Rate 16 04/28/22 17:56 Blood Pressure 181/79 H 04/28/22 17:56 Pulse Oximetry 98 04/28/22 17:56 Oxygen Delivery Method 04/28/22 17:56 Course <Jaya Marlow PA-C - Last Filed: 04/28/22 18:27> Vital Signs Vital signs: Vital Signs - 8 hr 04/28/22 17:56 Temperature 98.6 F Pulse Rate 104 H Respiratory Rate 16 Blood Pressure 181/79 H Pulse Oximetry 98 Oxygen Delivery Method Room Air <Leidy Damon DO - Last Filed: 04/29/22 07:20> Vital Signs Vital signs: Vital Signs - 8 hr 04/28/22 17:56 Temperature 98.6 F Pulse Rate 104 H Respiratory Rate 16 Blood Pressure 181/79 H Pulse Oximetry 98 Oxygen Delivery Method Room Air MDM - Abdominal Pain <Jaya Marlow PA-C - Last Filed: 04/28/22 18:27> MDM Narrative Medical decision making narrative: MDM * differential diagnosis includes but not limited to abdominal hernia, lipoma * Prior records reviewed: Patient has not been here for similar symptoms in the past. * My lab interpretation: None obtained * My imgaing interpretation: None obtained * Clinical Decision Rules/Scores evaluated: None * Independent discussions with: None ED Course: This is a 76-year-old female presents emergency department due to pain from a longstanding umbilical hernia. When I arrived in the room the patient states that she was already able to reduce the hernia with significant real improvement of her pain. Patient does not describe any fevers, nausea, vomiting, or new redness to the area concerning for strangulation or incarceration. Recommended she follow-up with her primary care provider for referral to General surgery to discuss possible hernia repair. Shared Decision Making: Discussed patient's plan with patient who is comfortable with this plan. Social Considerations: None Disposition: Discharge to home Discharge Plan Departure Patient Disposition: Home Clinical Impression: Hernia, umbilical Instructions: Abdominal Hernia Activity Restrictions/Additional Instructions: Thank you for coming to the [facility] Emergency Department today. I am very glad that you are able to reduce her hernia on your own. I recommended speak with your primary care provider for referral to General surgery for further evaluation and possible surgery to treat this. At this time I have low concern for any kind of entrapment of the hernia and low concerns for any kind of ?gangrene?. I hope you feel better soon. Prescriptions: No Action multivitamin [Multiple Vitamins] 1 EACH tablet 1 tab DAILY Qty: 0 glimepiride [Amaryl] 1 mg tablet 2 mg PO DAILY Qty: 0 Label Comments: TAKE 1/2 TAB WITH BREAKFAST OR FIRST MAIN MEAL OF THE DAY atorvastatin 10 mg Tablet 10 mg PO DAILY levothyroxine 100 mcg Tablet 100 mcg DAILY magnesium 250 mg Tablet 250 mg PO DAILY losartan 100 mg Tablet 100 mg PO DAILY fluticasone propionate [Flonase Allergy Relief] 50 mcg/actuation [place] calcium carbonate-vitamin D3 [Calcium 500 + D] 500 mg(1,250mg) -200 unit Tablet 1 tab PO BID fluticasone propion-salmeterol [Advair Diskus] 100-50 mcg/dose Blister With Device 1 puff INHALATION BID esomeprazole magnesium 20 mg tablet,delayed release (DR/EC) 20 mg PO DAILY trazodone 50 mg tablet 150 mg PO BEDTIME gabapentin 100 mg Capsule 100 mg PO DAILY Ozempic 1 mg/dose (2 mg/1.5 mL) Pen Injector 1 mg SUBCUT QWEEK acetaminophen 325 mg PO PRN PRN (Reason: Pain (Scale Score 4-6)) (DME) RespirNearlywedss DreamStation 2 See Rx Instructions .ROUTE .MEDSUPPLY Rx Instructions: CPAP Min: 8 Max: 12 DME: [employer] HOME: 03/12/19 Referrals: Tricia Lisa MD [Primary Care Provider] - Stand Alone Forms: Patient Portal/API <Leidy Damon DO - Last Filed: 04/29/22 07:20> Cosign ED Attending Cosignature Attestation: I was immediately available in the department for consultation. Documentation has been reviewed.
== END 2022-04-28 18:29 | disposition home or self-care (01) ==
PROVIDERS: Emergency Provider Physician Assistant Medical; PCP Internal Medicine
DX: K42.9 Umbilical hernia without obstruction or gangrene (principal)
CPT/HCPCS: 99281

== ENCOUNTER → 2023-02-24 10:11 | Outpatient (CLI) | payer OTHER, SELFPAY ==
[2023-02-24 11:25] LABS: Alanine Aminotransferase 23 IU/L (<35); Albumin Globulin Ratio 1.5 (1.0-2.8); Alkaline Phosphatase 98 U/L (38-126); Aspartate Aminotransferase 27 IU/L (14-36); Bilirubin Total 1.1 mg/dL (0.2-1.3); Bilirubin Unconjugated 0.9 mg/dL (0.0-1.1); Globulin 2.7 g/dL (1.7-4.1); HEMOLYSIS < 15 (0-50); Total Protein 6.7 g/dL (6.3-8.2)
== END ==
PROVIDERS: PCP Internal Medicine; Referring Provider Internal Medicine Hematology & Oncology; Visit Provider Internal Medicine Hematology & Oncology
DX: C64.2 Malignant neoplasm of left kidney, except renal pelvis (principal)
CPT/HCPCS: 36415; 80076

== ENCOUNTER → 2023-03-18 13:07 | Outpatient (CLI) | payer OTHER, SELFPAY ==
--- NOTE | 2023-03-18 | DI.MG.S_ITS ---
BILATERAL DIGITAL SCREENING MAMMOGRAM 3D/2D WITH CAD: 03/18/2023 CLINICAL: Routine screening. Family history of breast cancer. Comparison is made to exams dated: 10/07/2020 mammogram, 01/19/2019 mammogram - [facility], and 12/07/2015 mammogram - [facility]. There are scattered areas of fibroglandular density in both breasts (category b / 25%-50% glandular tissue). Current study was also evaluated with a Computer Aided Detection (CAD) system. There are benign calcifications in both breasts. No significant masses, calcifications, or other findings are seen in either breast. There has been no significant interval change. IMPRESSION: BENIGN There is no mammographic evidence of malignancy. A 1 year screening mammogram is recommended. Based on the Tyrer Cuzick model (a risk assessment model) the patient's lifetime risk is 6.8% and her 10 year risk is 0.0%. According to the ACR, ACS, and NCCN guidelines, an annual breast MRI exam along with mammogram is recommended if the patient's lifetime risk is 20% or greater. This exam was interpreted at Station ID: [id number]. NOTE: For mammograms, a report in lay terms will be sent to the patient. Approximately 15% of breast malignancies will not be visualized mammographically. In the management of a palpable breast mass, a negative mammogram must not discourage biopsy of a clinically suspicious lesion. Electronically Signed By: Joan briggs/liz:03/20/2023 12:46:01 letter sent: Normal Exam ACR BI-RADS Category 2: Benign Finding(s) [id number]
== END ==
LOC: MAMMO 13:08
PROVIDERS: PCP Internal Medicine; Referring Provider Internal Medicine; Visit Provider Internal Medicine
DX: Z12.31 Encounter for screening mammogram for malignant neoplasm of breast (principal); Z80.3 Family history of malignant neoplasm of breast; R92.323 Mammographic fibroglandular density, bilateral breasts
CPT/HCPCS: 77063; 77067

== ENCOUNTER → 2023-05-08 11:15 | Outpatient (CLI) | payer OTHER, SELFPAY ==
[2023-05-08 11:57] LABS: Estimated Glomerular Filt Rate > 60 mL/min (>60)
== END ==
PROVIDERS: PCP Internal Medicine; Referring Provider Radiology Diagnostic Radiology; Visit Provider Radiology Diagnostic Radiology
DX: J45.909 Unspecified asthma, uncomplicated (principal)
CPT/HCPCS: 36415; 82565

== ENCOUNTER → 2023-05-09 10:26 | Outpatient (CLI) | payer OTHER, SELFPAY ==
--- NOTE | 2023-05-09 11:42 | DI.CT.S_ITS ---
PROCEDURE: CT ABDOMEN PELVIS W CON INDICATIONS: KIDNEY CANCER NEPHRECTOMY MONITOR TECHNIQUE: After the administration of intravenous contrast, axial sections acquired from the lung bases to the pubic symphysis. Coronal and sagittal reformats were performed. For radiation dose reduction, the following was used: automated exposure control, adjustment of mA and/or kV according to patient size. COMPARISON: [facility], CT, CT CHEST ABD PEL WO CON, 12/10/2019, 14:42. FINDINGS: Image quality: Diagnostic. Lower Chest: Elect cysts. No pleural effusion. ABDOMEN: Liver: No solid mass. Gallbladder: Absent. Biliary ducts: No biliary dilation. Pancreas: No ductal dilation. Spleen: Size is within normal limits. Adrenal Glands: No adrenal nodules. Kidneys and Ureters: No hydronephrosis. Postsurgical changes at the inferior pole the left kidney. Small nonobstructing left kidney stones. Simple cyst in the right kidney. Stomach and Bowel: Normal colonic caliber, without significant wall thickening. Diverticulosis. Normal appendix. Peritoneum: No abnormal intraperitoneal fluid. No free air. Ventral Wall: Large ventral abdominal wall hernia containing fat. Abdominal Nodes: No retroperitoneal or mesenteric adenopathy by size criteria. Vessels: Aorta and inferior vena cava are normal in size. PELVIS: Pelvic Organs: Uterus is absent. Bladder: No stone. Pelvic Nodes: No enlarged lymph nodes. Miscellaneous: No inguinal hernias are seen. Bones: No aggressive osseous abnormality. Scoliosis. IMPRESSION: 1. Postsurgical changes at the inferior pole the left kidney. No recurrent mass. 2. No metastatic disease. No adenopathy. Dictated by: Mao Bell M.D. on 05/09/2023 at 19:36 Approved by: Mao Bell M.D. on 05/09/2023 at 20:48
== END ==
PROVIDERS: PCP Internal Medicine; Referring Provider Internal Medicine; Visit Provider Internal Medicine
DX: R10.31 Right lower quadrant pain (principal); N28.1 Cyst of kidney, acquired; K43.9 Ventral hernia without obstruction or gangrene
CPT/HCPCS: 74177

== ENCOUNTER → 2023-07-05 10:26 | Outpatient (CLI) | payer OTHER, SELFPAY ==
[2023-07-05 11:39] LABS: Add Manual Diff / Slide Review NO; Basophils Absolute Auto 0 /uL (0-100); Basophils Percent Auto 0.7 % (0-2); Eosinophils Absolute Auto 100 /uL (0-450); Eosinophils Percent Auto 1.3 % (2-4); Hematocrit 42.1 % (36-46); Hemoglobin 13.9 g/dL (12.0-16.0); Lymphocytes Absolute Auto 2600 /uL (1100-4500); Lymphocytes Percent Auto 37.1 % (25-40); Mean Corpuscular Hemoglobin 29.9 PG (26-34); Mean Corpuscular Volume 90.6 fL (80-100); Monocytes Absolute Auto 400 /uL (0-900); Monocytes Percent Auto 6.2 % (3-14); Neutrophils Absolute Auto 3800 /uL (1500-7000); Neutrophils Percent Auto 54.7 % (50-75); Platelet Count 295 X10^3/uL (150-400); Red Blood Cell Count 4.65 X10^6/uL (4.0-5.2); Red Cell Distribution Width 13.9 % (11.6-14.8); White Blood Cell Count 6.9 X10^3/uL (4.5-11.0)
[2023-07-05 11:49] LABS: HEMOLYSIS < 15 (0-50); Potassium 4.1 mmol/L (3.4-5.1)
[2023-07-05 11:50] LABS: Alanine Aminotransferase 18 IU/L (<35); Albumin 4.2 g/dL (3.5-5.0); Albumin Globulin Ratio 1.8 (1.0-2.8); Alkaline Phosphatase 103 U/L (38-126); Aspartate Aminotransferase 22 IU/L (14-36); BUN Creatinine Ratio 13.8 (6-22); Bilirubin Total 0.8 mg/dL (0.2-1.3); Blood Urea Nitrogen 11 mg/dL (7-17); Calcium 9.6 mg/dL (8.4-10.2); Carbon Dioxide 28 mmol/L (22-32); Chloride 105 mmol/L (98-107); Estimated Glomerular Filt Rate > 60 mL/min (>60); Globulin 2.3 g/dL (1.7-4.1); Glucose 132 mg/dL (80-110); Sodium 139 mmol/L (137-145); Total Protein 6.5 g/dL (6.3-8.2)
== END ==
LOC: RESP 10:29
PROVIDERS: PCP Internal Medicine; Referring Provider Surgery; Visit Provider Surgery
DX: Z01.818 Encounter for other preprocedural examination (principal); K43.2 Incisional hernia without obstruction or gangrene
CPT/HCPCS: 36415; 80053; 85025; 93005